=== PATIENT | male | born 1970 | race Caucasian/White ===

== ENCOUNTER 2017-07-30 07:22 | Emergency (ER) | payer BC ==
[~2017-07-30] VITALS: Ht 170.2 cm; Wt 75.0 kg
[~2017-07-30 07:22] MED LIST: HYDR-3129 PO; Z.0.WALKERFRONT
[2017-07-30 07:25] VITALS: BP 197/127; PULSE 107; RESP 20; TEMP 98.4; O2SAT 99
[2017-07-30 07:30] VITALS: BP 167/102; PULSE 93
--- NOTE | 2017-07-30 07:40 | PD ---
HPI Chief Complaint: Laceration/Skin Injury Time Seen by Provider: 07:28 Travel History International Travel<30 days: No Contact w/Intl Traveler<30days: No Traveled to known affect area: No History of Present Illness HPI The patient is a 46-year-old male who presents to the emergency department for laceration to the top of the head after he fell downstairs last night. The patient states he did have a few alcoholic drinks last night, was walking the dogs, when he tripped and fell down the stairs. The patient states he rolled down approximately 19 stairs. The patient did strike his head, there was no loss of consciousness. The patient had a laceration to the top of the head, however, states his style bleeding. The patient awakened this morning with the shower, noticed he had pain of the affected area. He does complain of a headache over the top aspect of the head with there is a laceration present. He denies any neck pain. He denies any chest pain, shortness of breath, nausea , vomiting, or abdominal pain. He denies any focal deficits. The patient's last tetanus shot was one year ago. He denies taking any anticoagulants. Symptoms are moderate, exacerbated after falling down the stairs, there are no current alleviating factors. PFSH Past Medical History Medical History: Denies Significant Hx Blood Disorders: No Cancer: No Cardiovascular Problems: No Diabetes: No Diminished Hearing: No Endocrine: No Genitourinary: No Immune Disorder: No Musculoskeletal: No Neurologic: No Psychiatric: No Reproductive: No Respiratory: No Immunizations Current: No Past Surgical History Genitourinary Surgery: Yes Other Surgery: Yes (SHOULDER AT AGE 13) Social History Alcohol Use: Yes (OCCASIONAL) Tobacco Use: Yes (1/2 PPD) Substance Use: Yes (FLAKKA) Allergies-Medications (Allergen,Severity, Reaction): Coded Allergies: penicillin G (Unverified Allergy, Unknown, 09/28/16) Reported Meds & Prescriptions Reported Meds & Active Scripts Active Walker Front Wheel (Walkerfront) Device 1 Unit [place] 10/325 (Hydrocodone-Acetaminophen 10/325) Acetaminophen 325/10 Hydrocodone Tab 1-2 Tab PO Q4H PRN Review of Systems Except as stated in HPI: all other systems reviewed are Neg General / Constitutional: No: Fever Eyes: No: Blurred Vision, Photophobia HENT: Positive: Headaches, No: Neck Pain Cardiovascular: No: Chest Pain or Discomfort Respiratory: No: Shortness of Breath Gastrointestinal: No: Nausea, Vomiting, Abdominal Pain Musculoskeletal: No: Weakness, Pain Neurologic: Positive: Headache, No: Dizziness, Focal Abnormalities, Change in Mentation, Paresthesia, Sensory Disturbance Physical Exam Narrative GENERAL: Awake, alert, pleasant 46-year-old male who appears his stated age and is in no acute respiratory distress. SKIN: Focused skin assessment warm/dry. HEAD: Matted hair on the superior aspect of the scalp with dried blood. EYES: Pupils equal and round. 4 mm bilateral and reactive. EOMs are intact. ENT: No nasal bleeding or discharge. Mucous membranes pink and moist. NECK: Trachea midline. No JVD. No tenderness of the midline of the cervical vertebrae. CARDIOVASCULAR: Regular rate and rhythm. No murmur appreciated. RESPIRATORY: No accessory muscle use. Clear to auscultation. Breath sounds equal bilaterally. GASTROINTESTINAL: Abdomen soft, non-tender, nondistended. Back: No tenderness over the thoracic or lumbar vertebrae. MUSCULOSKELETAL: No obvious deformities. No clubbing. No cyanosis. No edema. Moves all 4 extremities without difficulty. Ambulates without difficulty. NEUROLOGICAL: Awake and alert. No obvious cranial nerve deficits. Motor grossly within normal limits. Normal speech. Nonfocal. PSYCHIATRIC: Appropriate mood and affect; insight and judgment normal. Data Data Last Documented VS Vital Signs Date Time Temp Pulse Resp B/P (MAP) Pulse Ox O2 Delivery O2 Flow Rate FiO2 07/30/17 08:00 156/98 (117) 07/30/17 07:30 93 07/30/17 07:25 98.4 20 99 Orders Orders Acetaminophen (Tylenol) (07/30/17 07:45) Ct Brain W/O Iv Contrast(Rout) (07/30/17 ) Ct Cerv Spine W/O Contrast (07/30/17 ) Lidocai-Epi 1%-1:100,000 Inj (Xylocaine- (07/30/17 08:15) MDM Medical Decision Making Medical Screen Exam Complete: Yes Emergency Medical Condition: Yes Medical Record Reviewed: Yes Interpretation(s) Last Impressions Head CT 07/30/17 0000 Signed Impressions: CONCLUSION: There is right lateral scalp soft tissue swelling adjacent to the scalp jenny . No fracture or acute intracranial abnormality is identified. Cervical Spine CT 07/30/17 0000 Signed Impressions: CONCLUSION: 1. No acute cervical spine abnormality is identified. 2. Stable degenerative disc disease at C5-C6 and C6-C7. Differential Diagnosis Differential diagnosis includes closed head injury, intracranial hemorrhage, skull fracture, laceration, abrasion, contusion, cervical fracture. Narrative Course CT of the brain and cervical spine were obtained. The patient states his tetanus shot is up-to-date. The patient's wounds were clean and inspected. The laceration was repaired by the mid-level provider, please refer to the procedure note. CT of the brain and cervical spine revealed no intracranial hemorrhage or fracture. The patient is advised to have the jenny removed in 7 days. Wound care instructions, Polysporin twice a day, follow-up with a primary physician. Diagnosis Primary Impression: Closed head injury Qualified Codes: S09.90XA - Unspecified injury of head, initial encounter Additional Impression: Scalp laceration Qualified Codes: S01.01XA - Laceration without foreign body of scalp, initial encounter Patient Instructions: General Instructions Additional Instructions: Tylenol and/or Motrin as needed for pain. Staple removal in 7 days. Wound care instructions. Follow-up with your primary physician. Return if symptoms worsen or progress. Disposition: 01 DISCHARGE HOME Condition: Stable Kojo Chan MD Jul 30, 2017 07:40
[2017-07-30] MEDS ORDERED: ACETAMINOPHEN 325 MG TAB PO ONE (07:45)
[2017-07-30 08:00] VITALS: BP 156/98
--- NOTE | 2017-07-30 08:13 | PD ---
Physical Exam Date Seen by Provider: Jul 30, 2017 Time Seen by Provider: 08:12 Narrative For full history and physical examination please see previous providers note. Data Data Last Documented VS Vital Signs Date Time Temp Pulse Resp B/P (MAP) Pulse Ox O2 Delivery O2 Flow Rate FiO2 07/30/17 08:00 156/98 (117) 07/30/17 07:30 93 07/30/17 07:25 98.4 20 99 Orders Orders Acetaminophen (Tylenol) (07/30/17 07:45) Ct Brain W/O Iv Contrast(Rout) (07/30/17 ) Ct Cerv Spine W/O Contrast (07/30/17 ) Lidocai-Epi 1%-1:100,000 Inj (Xylocaine- (07/30/17 08:15) MDM Medical Record Reviewed: Yes Supervised Visit with SATISH: Yes Procedures Procedure Narrative LACERATION LOCATION: Right scalp LENGTH: 3 cm NUMBER OF STITCHES/JENNY: 6 jenny REPAIR: The area of the laceration was prepped with Betadine and sterilely draped. The laceration was infiltrated with 1% lidocaine with epi. The wound was copiously irrigated and explored without evidence of foreign body, tendon injury or neurovascular injury. The wound was closed using jenny. This was a 1 layer repair. A sterile dressing was applied. The patient was advised to keep the dressing clean and dry. Patient tolerated the procedure well. Condition: Stable [place],Crystaliliana [place] Jul 30, 2017 08:13
[2017-07-30] MEDS ORDERED: LIDOCAINE 1%/EPINEPHrine 1:100,000 SOLN 20 ML VIAL INFIL ONE (08:15)
--- NOTE | 2017-07-30 08:46 | RADRPT ---
EXAM DATE: 07/30/2017 8:38 AM EDT AGE/SEX: 46 years / Male INDICATIONS: Trauma, fall last night. CLINICAL DATA: This is the patient's initial encounter. Patient reports that signs and symptoms have been present for 1 day and indicates a pain score of 7/10. MEDICAL/SURGICAL HISTORY: None. None. RADIATION DOSE: 35.94 CTDI (mGy) COMPARISON: [facility] [place] BRAIN [place]/O [place], 10/31/2014. . TECHNIQUE: CT of the head without contrast. Using automated exposure control and adjustment of the mA and/or kV according to patient size, radiation dose was kept as low as reasonably achievable to ob tain optimal diagnostic quality images. FINDINGS: Cerebrum: The ventricles are normal. No midline shift, mass lesion, hemorrhage or acute infarction. No extraaxial fluid collections are seen. Posterior Fossa: The cerebellum and brainstem demonstrate no acute abnormality. The 4th ventricle is midline. The cerebellopontine angle is within normal limits. Extracranial: There is a right lateral scalp soft tissue swelling with overlying skin jenny. Visua lized sinuses are clear. Skull: The calvaria is intact. No skull fracture. CONCLUSION: There is right lateral scalp soft tissue swelling adjacent to the scalp jenny. No fracture or acute intracranial abnormality is identified. Electronically signed by: Hubert Clemens MD 07/30/2017 8:45 AM EDT
--- NOTE | 2017-07-30 08:51 | RADRPT ---
EXAM DATE: 07/30/2017 8:38 AM EDT AGE/SEX: 46 years / Male INDICATIONS: Trauma, fall last night. CLINICAL DATA: This is the patient's initial encounter. Patient reports that signs and symptoms have been present for 1 day and indicates a pain score of 7/10. MEDICAL/SURGICAL HISTORY: None. None. RADIATION DOSE: 16.04 CTDI (mGy) COMPARISON: [facility] – [place], [place] CERVICAL SPINE W/O CONTRAST, 10/31/2014. . TECHNIQUE: Contiguous axial images were obtained using helical multirow detector technique. The vol umetric data was post-processed with multiplanar reconstruction in oblique axial, sagittal, and coron al planes. Using automated exposure control and adjustment of the mA and/or kV according to patient s ize, radiation dose was kept as low as reasonably achievable to obtain optimal diagnostic quality alfonso ges. FINDINGS: There is normal sagittal spinal alignment. No fracture or dislocation is identified. There is no ante rolisthesis or retrolisthesis. Atlantoaxial relationship is within normal limits and no prevertebral soft tissue swelling is present. Degenerative disc disease is present at C5-C6 and C6-C7, stable from the prior study. The visualized surrounding structures demonstrate no acute finding. CONCLUSION: 1. No acute cervical spine abnormality is identified. 2. Stable degenerative disc disease at C5-C6 and C6-C7. Electronically signed by: Hubert Clemens MD 07/30/2017 8:49 AM EDT
== END 2017-07-30 09:16 | disposition home or self-care (01) ==
LOC: NEPC 07:22
DX: S01.01XA Laceration without foreign body of scalp, initial encounter (principal); S09.90XA Unspecified injury of head, initial encounter; M50.322 Other cervical disc degeneration at C5-C6 level; M50.323 Other cervical disc degeneration at C6-C7 level; F17.200 Nicotine dependence, unspecified, uncomplicated; F19.90 Other psychoactive substance use, unspecified, uncomplicated; Z88.0 Allergy status to penicillin; W10.9XXA Fall (on) (from) unspecified stairs and steps, initial encounter
CPT/HCPCS: 12002; 70450; 72125